=== PATIENT | male | born 1975 | race Caucasian/White ===

== ENCOUNTER 2021-10-13 07:01 | Day surgery (SDC) | payer BC ==
[2021-10-10 12:27] VITALS: BMI 25.0
[2021-10-13] MEDS ORDERED: Lidocaine 1% MPF 2 ML VIAL ONE (07:27)
[2021-10-13] MEDS ORDERED: Fentanyl 100 MCG/2 ML VIAL ONE (08:32)
[2021-10-13] MEDS ORDERED: Midazolam HCl 2 mg/2 ml Vial ONE (08:32)
[2021-10-13] MEDS ORDERED: Lidocaine 2% Jelly 5 ML TUBE ONE (09:27)
[2021-10-13] MEDS ORDERED: Lidocaine 1% w/Epinephrine 1:100K 20 ML VIAL ONE (09:36)
[2021-10-13] MEDS ORDERED: HYDROcodone/Acetaminophen 5/325 mg Tablet PO PRN ×2 (09:45)
[2021-10-13] MEDS ORDERED: Ropivacaine 0.2% 550 ML 550 ML NERVE BLCK SCH (09:45)
[2021-10-13] MEDS ORDERED: Zolpidem Tartrate 5 MG TAB PO PRN (09:45)
[2021-10-13] MEDS ORDERED: traMADol HCl 50 MG TAB PO PRN ×2 (09:45)
[2021-10-13] MEDS ORDERED: Ondansetron PF 4 MG/2 ML Vial IVP PRN (09:45)
[2021-10-13] MEDS ORDERED: Promethazine HCl 25 MG/ML VIAL IM PRN (09:45)
[2021-10-13] MEDS ORDERED: ceFAZolin (BATCH) 2 GM/100 ML BAG ONE (09:47)
[2021-10-13] MEDS ORDERED: Rocuronium Bromide 10 MG/ML (10ML VIAL) ONE (10:01)
[2021-10-13] MEDS ORDERED: Dexamethasone 20 MG/5 ML VIAL ONE (10:01)
[2021-10-13] MEDS ORDERED: PROPOFOL 200 MG/20 ML VIAL ONE (10:01)
[2021-10-13] MEDS ORDERED: Ondansetron PF 4 MG/2 ML Vial ONE (10:01)
[2021-10-13] MEDS ORDERED: Lidocaine 1% PF 5 ML VIAL ONE (10:01)
[2021-10-13] MEDS ORDERED: Glycopyrrolate 0.2 MG/ML 5 ML SYRINGE ONE (10:01)
[2021-10-13] MEDS ORDERED: Ropivacaine 0.5% HCl/PF (150 MG/30 ML VIAL) ONE (10:01)
[2021-10-13] MEDS ORDERED: Ketorolac Tromethamine 30 MG/ML VIAL IVP SCH (12:00)
== END 2021-10-13 14:08 | disposition home or self-care (01) ==
LOC: SDC 07:01
PROVIDERS: ATTEND Orthopaedic Surgery
PROC: 3E0T3BZ Introduction of Anesthetic Agent into Peripheral Nerves and Plexi, Percutaneous Approach (ICD-10-PCS; principal; 2021-10-13)
PROC: 0LQ24ZZ Repair Left Shoulder Tendon, Percutaneous Endoscopic Approach (ICD-10-PCS; principal; 2021-10-13)
DX: S46.012A Strain of muscle(s) and tendon(s) of the rotator cuff of left shoulder, initial encounter (principal); Q74.0 Other congenital malformations of upper limb(s), including shoulder girdle; J45.909 Unspecified asthma, uncomplicated; Z88.5 Allergy status to narcotic agent
CPT/HCPCS: A4306; C1713; J0690; J1100; J2250; J2405; J2704; J2795; J3010